=== PATIENT | female | born 1950 | race Caucasian/White ===

== ENCOUNTER → 2016-12-04 | Outpatient (CLI) | payer OTHER ==
--- NOTE | 2016-12-05 12:52 | DI ---
MRI LOW EXTREMITY JNT W/O CN,12/04/2016 1:40 PM: Clinical History: Right knee pain Previous Exam: February 01, 2016 plain films. Findings: Multiplanar MR images are obtained through the right knee without contrast. Bony alignment is anatomic. No fractures are seen. Tricompartmental degenerative changes are noted. There is thinning of the articular cartilage tricompartmentally worse along the medial compartment wh ere there is full-thickness chondromalacia of the most medial portion of the medial femoral condyle w ith subchondral edema. The major vascular flow voids are unremarkable. The anterior and posterior cruciate ligaments are int act. The popliteus tendon is unremarkable. The medial and lateral collateral ligaments are intact. There are there are complex tears of the posterior horn and body of the medial meniscus. There is als o a complex tear of the body and anterior horn of the lateral meniscus. There is a large knee joint effusion with multiple thickened, irregular synovial plica. There is a large Light's cyst which dissects inferiorly along the medial head of the gastrocnemius mu scle. This Light's cyst measures approximately 3.5 x 3.5 x 5.7 cm. Impression: 1. Complex tear of the posterior horn and body of the medial meniscus. 2. Complex tear of the anterior horn and body of the lateral meniscus. 3. Large right knee joint effusion with multiple redundant synovial plica most consistent with synovi al hypertrophy. 4. 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 5. Large Light's cyst dissecting inferiorly along the medial head of the gastrocnemius tendons.
--- NOTE | 2016-12-05 13:20 | DI ---
MRI LOW EXTREMITY JNT W/O CN,12/04/2016 1:40 PM: Clinical History: Left knee pain Previous Exam: Plain films performed February 01, 2016 Findings: Multiplanar MR images are obtained through the left knee without contrast, and demonstrate diffuse tr icompartmental osteopenia with some full-thickness osteochondral defects involving the medial compart ment. A few osteophytes are noted. There is a complex tear of the medial meniscus involving the posterior horn and body. The lateral meniscus demonstrates a small oblique tear within the anterior horn. There is a large Light's cyst. The anterior and posterior crucial ligaments are intact. The medial and lateral collateral ligaments are intact. The popliteus tendon is unremarkable. Major vascular flow voids are unremarkable. The quadriceps and patellar tendons are intact. There is some synovial thickening within the large knee joint effusion. Impression: 1. Tricompartmental degenerative changes. 2. Complex tear of the posterior horn and body of the medial meniscus. 3. Small oblique tear involving the anterior horn of the lateral meniscus. 4. Increased thickening of the synovium similar to the contralateral side. This could be due to synov itis. Correlate clinically as this could represent a primary synovial process such as rheumatoid arth ritis.
== END ==
LOC: MRI 13:37
PROVIDERS: ATTEND Orthopaedic Surgery
DX: M25.562 Pain in left knee (principal); M25.561 Pain in right knee; S83.232A Complex tear of medial meniscus, current injury, left knee, initial encounter; M25.462 Effusion, left knee; M23.242 Derangement of anterior horn of lateral meniscus due to old tear or injury, left knee; S83.231A Complex tear of medial meniscus, current injury, right knee, initial encounter; S83.271A Complex tear of lateral meniscus, current injury, right knee, initial encounter; M25.461 Effusion, right knee; M71.21 Synovial cyst of popliteal space [Baker], right knee; M94.261 Chondromalacia, right knee
CPT/HCPCS: 73721

== ENCOUNTER 2016-12-19 08:40 | Day surgery (SDC) | payer OTHER ==
[~2016-12-19 08:40] MED LIST: LIDOCAINE W/ SODIUM BICARB 0.5 ML SYR ONE; Lactated Ringers 1,000 ML PRIMARY IV ONE; ceFAZolin Inj 2gm (Premix) 50 ML IV ONE
[2016-12-19 09:21] LABS: HEMATOCRIT 45.3 % (37.0-47.0); HEMOGLOBIN 15.5 g/dL (12.0-16.0); MEAN CORPUSCULAR HEMOGLOBIN 31.1 PG (27-31); MEAN CORPUSCULAR HGB CONC 34.2 g/dL (33-37); MEAN PLATELET VOLUME 10.7 FL (7.4-12.2); RED BLOOD COUNT 4.98 10^6/uL (4.20-5.40)
[2016-12-19 09:46] LABS: BLOOD UREA NITROGEN 20 mg/dL (7-22); BUN/CREATININE RATIO 28.57 (6-20); CALCIUM 9.8 mg/dL (8.7-10.7); EST GLOMERULAR FILTRATION > 60 (>60 ml/min/1.73m(2))
[2016-12-19] MEDS ORDERED: EPINEPHrine Inj (1:1,000) 30mg/30ml vial ONE (09:51)
[2016-12-19] MEDS ORDERED: Ropivacaine 0.2% VIAL 20 ML ONE (09:51)
[2016-12-19] MEDS ORDERED: LIDOCAINE MPF 2% - 5 ML (20 MG/1 ML) ONE (10:22)
[2016-12-19] MEDS ORDERED: MIDAZOLAM 5 MG/1 ML ONE (10:22)
[2016-12-19] MEDS ORDERED: fentaNYL Inj 250 MCG/5 ML VIAL ONE (10:22)
[2016-12-19] MEDS ORDERED: DEXAMETHASONE SOD PHOSPHATE 4 MG/1 ML VIAL ONE (11:35)
[2016-12-19] MEDS ORDERED: ONDANSETRON 4 MG/2 ML VIAL ONE (11:35)
[2016-12-19] MEDS ORDERED: KETOROLAC 30 MG/1 ML VIAL ONE (11:35)
[2016-12-19] MEDS ORDERED: KETAMINE 100 MG/1 ML - 5 ML ONE (11:47)
[2016-12-19] MEDS ORDERED: HYDROmorphone 2 MG/1 ML ONE (12:17)
[2016-12-19] MEDS ORDERED: Lactated Ringers 1,000 ML PRIMARY IV ONE (12:19)
[2016-12-19] MEDS ORDERED: BETAMET ACET/BETAMET NA PH 6 MG/1 ML - 5 ML ONE (12:29)
[2016-12-19] MEDS ORDERED: CALCIUM CARBONATE 500 MG (TUMS) CHEWABLE TABLET PO PRN (12:55)
[2016-12-19] MEDS ORDERED: HYDROcodone-APAP 7.5 MG-325 MG TABLET PO PRN (12:55)
[2016-12-19] MEDS ORDERED: ACETAMINOPHEN 325 MG TABLET PO PRN (12:55)
[2016-12-19] MEDS ORDERED: MAG HYDROX/AL HYDROX/SIMETH 30 ML SUSP PO PRN (12:55)
[2016-12-19] MEDS ORDERED: Prochlorperazine Tab 10 MG TAB PO PRN (12:55)
[2016-12-19] MEDS ORDERED: MORPHINE SULFATE 2 MG/1 ML IVP PRN (12:55)
[2016-12-19] MEDS ORDERED: ONDANSETRON 4 MG/2 ML VIAL IVP PRN (12:55)
[2016-12-19] MEDS ORDERED: BISACODYL 10 MG SUPPOSITORY RECTAL PRN (12:55)
[2016-12-19] MEDS ORDERED: BISACODYL 5 MG TABLET PO PRN (12:55)
[2016-12-19] MEDS ORDERED: diphenhydrAMINE 25 MG CAPSULE PO PRN (12:55)
[2016-12-19] MEDS ORDERED: NORMAL SALINE 10 ML SYRINGE FLUSH IVP PRN ×2 (12:55→13:08)
[2016-12-19] MEDS ORDERED: Ondansetron ODT Tab 8 MG TAB PO PRN (12:55)
[2016-12-19] MEDS ORDERED: IBUPROFEN 400 MG TABLET PO PRN (12:55)
[2016-12-19] MEDS ORDERED: Lactated Ringers 1,000 ML PRIMARY IV SCH ×2 (13:00→13:15)
[2016-12-19 13:02] VITALS: RESP 12
[2016-12-19] MEDS ORDERED: fentaNYL Inj 100 MCG/2 ML VIAL IVP PRN (13:08)
[2016-12-19] MEDS: HYDROmorphone 2 MG/1 ML IVP PRN ×2 (13:18→13:35)
[2016-12-19 15:33] VITALS: TEMP 96.8
== END 2016-12-19 15:20 | disposition home or self-care (01) ==
LOC: SDSC 08:40
PROVIDERS: ATTEND Orthopaedic Surgery
DX: S83.281A Other tear of lateral meniscus, current injury, right knee, initial encounter (principal); S83.241A Other tear of medial meniscus, current injury, right knee, initial encounter; S83.31XA Tear of articular cartilage of right knee, current, initial encounter; M65.9 Synovitis and tenosynovitis, unspecified; M25.861 Other specified joint disorders, right knee
CPT/HCPCS: 29876; 29880; 80048; 85027; J0171; J0690; J0702; J1885; J2704; J2795; J3010; J1100; J1170; J2001; J2250; J2405; J7120

== ENCOUNTER → 2017-01-01 | Outpatient (CLI) | payer OTHER | LOC: MMPC 10:00 | PROVIDERS: ATTEND Orthopaedic Surgery | DX: S83.281A Other tear of lateral meniscus, current injury, right knee, initial encounter (principal); S83.31XA Tear of articular cartilage of right knee, current, initial encounter; S83.241A Other tear of medial meniscus, current injury, right knee, initial encounter; M12.561 Traumatic arthropathy, right knee ==